=== PATIENT | male | born 1960 | race African-American/Black ===

== ENCOUNTER 2017-05-18 02:17 | Inpatient (IN) | payer SELFPAY ==
[~2017-05-18] VITALS: Ht 175.3 cm; Wt 72.7 kg
[2017-05-18] VITALS (10 sets, daily range): BP systolic 118–142; BP diastolic 61–91; PULSE 45–69; RESP 8–20; TEMP 97.5; Ht 175.3 cm; Wt 72.7 kg
[2017-05-18] MEDS ORDERED: ENALAPRILAT 1.25 MG INJ IV ONE (03:00)
[2017-05-18] MEDS ORDERED: SOD CHLORIDE 0.9% 1,000 ML IV STA (03:00)
[2017-05-18 03:26] LABS: BASOPHILS % 0.7 % (0.0-2.0); EOSINOPHILS # 0.2 10^3/ul (0.0-0.5); EOSINOPHILS % 2.9 % (0.0-7.0); HEMATOCRIT 43.2 % (42.0-52.0); HEMOGLOBIN 14.6 g/dl (14.0-18.0); LYMPHOCYTES % 34.7 % (15.0-51.0); MEAN CORPUSCULAR HEMOGLOBIN 29.9 pg (29.0-33.0); MEAN CORPUSCULAR HGB CONC 33.8 g/dl (32.0-37.0); MEAN CORPUSCULAR VOLUME 88.5 fl (82.0-101.0); MEAN PLATELET VOLUME 9.9 fl (7.4-10.4); MONOCYTE # 0.6 10^3/ul (0.3-0.9); MONOCYTES % 9.7 % (0.0-11.0); NEUTROPHILS % 51.7 % (39.0-77.0); PLATELET COUNT 274 10^3/UL (140-415); RED BLOOD COUNT 4.88 10^6/ul (4.70-6.10); WHITE BLOOD COUNT 5.8 10^3/ul (4.8-10.8)
[2017-05-18 03:30] LABS: ALANINE AMINOTRANSFERASE 41 IU/L (13-69); ALBUMIN 4.4 g/dl (3.3-4.9); ALBUMIN/GLOBULIN RATIO 1.33; ALKALINE PHOSPHATASE 76 IU/L (42-121); ANION GAP 14 (8-16); ASPARTATE AMINO TRANSFERASE 29 IU/L (15-46); BILIRUBIN,INDIRECT 0.9 mg/dl (0-1.1); BILIRUBIN,TOTAL 0.9 mg/dl (0.2-1.3); BLOOD UREA NITROGEN 8 mg/dl (7-20); CALCIUM 9.5 mg/dl (8.4-10.2); CARBON DIOXIDE 28 mmol/L (21-31); CHLORIDE 107 mmol/L (97-110); CREATININE 0.95 mg/dl (0.61-1.24); GLUCOSE 113 mg/dl (70-220); SODIUM 146 mmol/L (135-144); TOTAL PROTEIN 7.7 g/dl (6.1-8.1)
[2017-05-18] MEDS ORDERED: POTASSIUM CHLORIDE (SR) 20 MEQ TAB PO STA (03:35)
--- NOTE | 2017-05-18 03:38 | RADRPT ---
PROCEDURE: CHEST - 1 VIEW CLINICAL INDICATION: 56-year-old male with chest/abdominal pain. TECHNIQUE: A single frontal AP upright portable view of the chest was performed. The images were reviewed on a PACS workstation. COMPARISON: None. FINDINGS: The cardiomediastinal silhouette has a normal appearance. There is no evidence for an infiltrate. There is no evidence for congestive heart failure. There is no evidence for pneumothorax. The osseou s structures are intact. IMPRESSION: No evidence for active cardiopulmonary disease. .Carlos Enrique Yarbrough MD, MD Date Time Electronically viewed and signed by .Carlos Enrique Yarbrough MD, on 05/18/2017 03:37 .M/
[2017-05-18 03:40] LABS: ADD UMIC NO; UR ASCORBIC ACID NEGATIVE (NEGATIVE); UR BILIRUBIN (Dip) NEGATIVE (NEGATIVE); UR BLOOD (Dip) NEGATIVE (NEGATIVE); UR CLARITY CLEAR (CLEAR); UR COLOR YELLOW (YELLOW); UR GLUCOSE (Dip) NEGATIVE (NEGATIVE); UR KETONES (Dip) NEGATIVE (NEGATIVE); UR LEUKOCYTE ESTERASE (Dip) NEGATIVE Leu/ul (NEGATIVE); UR NITRITE (Dip) NEGATIVE (NEGATIVE); UR SPECIFIC GRAVITY (Dip) 1.014 (1.003-1.030); UR TOTAL PROTEIN (Dip) NEGATIVE (NEGATIVE); UR UROBILINOGEN (Dip) NEGATIVE (NEGATIVE)
[2017-05-18 03:44] LABS: TROPONIN-I < 0.012 ng/ml (0.00-0.12)
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
[2017-05-18] MEDS ORDERED: POTASSIUM CHLORIDE 250 ML IVPB ONE (04:30)
[2017-05-18] MEDS ORDERED: ACETAMINOPHEN 325 MG TAB PO PRN (06:30)
[2017-05-18] MEDS ORDERED: ONDANSETRON 4 MG INJ IV PRN (06:30)
[2017-05-18 08:12] LABS: MAGNESIUM 1.7 mg/dl (1.7-2.5); PHOSPHORUS 3.2 mg/dl (2.5-4.9)
[2017-05-18] MEDS ORDERED: ENOXAPARIN 40 MG/0.4 ML SYG SC SCH (09:00)
[2017-05-18] MEDS ORDERED: ASPIRIN 81 MG TAB PO SCH (09:00)
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
--- NOTE | 2017-05-18 14:04 | PDOCDIS ---
Discharge Instructions DIAGNOSIS Discharge Diagnosis 1. Syncope, unknown etiology 2. Numbness in the pelvic area. Likey secondary to patient's prolonged sitting with possible nerve compression. improved significantly 3. Elevated blood pressure, likely secondary to anxiety 4. Hypokalemia CONDITION Patient Condition: Stable HOME CARE INSTRUCTIONS: Special Diet: REGULAR FOLLOW UP/APPOINTMENTS Follow-up Plan 1. Follow up with your primary care provider in one week BETO SARGENT May 18, 2017 14:04
--- NOTE | 2017-05-18 14:36 | RADRPT ---
Echocardiogram Report Patient Name: YAJAIRA LOPES Gender: Male Date: 1960 Study Date: 18-May-2017 Hearing Specialist: [facility] Location: [facility] Ref. Physician: MIKE ESPINAL Quality: Adequate Procedures: Transthoracic echocardiogram with complete 2D, M-Mode, and doppler examination. Indications: Syncope. 2D/M Mode Doppler Measurement Value Normal Ranges Measurement Value Normal Ranges LVIDd 2D 4.3 3.5 - 5.6 cm AV Peak Miguel 1.2 m/sec LVIDs 2D 2.8 2.1 - 4.1 cm AV Peak PG 6.0 mmHg FS 2D 34.4 % LVOT Peak Miguel 1.0 m/sec LVPWd 2D 1.1 0.6 - 1.1 cm LVOT Peak PG 4.0 mmHg IVSd 2D 1.1 0.6 - 1.1 cm MV E Peak Miguel 0.7 m/sec IVS/LVPW 2D 1.0 MV A Peak Miguel 0.6 m/sec AoR Diam 2D 2.7 2.0 - 3.7 cm MV E/A 1.3 LA/Ao 2D 1 0 - 1 MV Decel Time 204 msec EDV 2D 79.5 cm3 MV E/A 1.3 ESV 2D 22.4 cm3 TR Peak Miguel 2.5 m/sec LA Dimen 2D 3.1 2.3 - 4.0 cm TR Peak PG 25.0 mmHg RVSP 28.0 mmHg Findings Left Ventricle: Normal left ventricular systolic function. Normal left ventricular cavity size. Normal left ventricular wall thickness. Ejection fraction is visually estimated at 65 %. Right Ventricle: Normal right ventricular size. Normal right ventricular systolic function. Left Atrium: The left atrium is normal in size. Right Atrium: The right atrium is normal in size. Mitral Valve: Mild mitral leaflet calcification. Mild mitral annular calcification. Trace mitral regurgitation. Aortic Valve: Grossly normal appearance of the aortic valve. No hemodynamically significant aortic stenosis by doppler. Trace aortic valve regurgitation. Tricuspid Valve: Normal appearance and function of the tricuspid valve with trace physiologic regurgitation. Estimated peak PA systolic pressure 28 mmHg. Pulmonic Valve: Pulmonic valve not well visualized. There is trace pulmonic regurgitation. Pericardium: Normal pericardium with no significant pericardial effusion. Aorta: Normal aortic root. IVC: Normal size and normal respiratory collapse consistent with normal right atrial pressure. Conclusions 1.Normal left ventricular systolic function. Normal left ventricular cavity size. Normal left ventricular wall thickness. Ejection fraction is visually estimated at 65 %. 2.Normal right ventricular size. Normal right ventricular systolic function. 3.The left atrium is normal in size. 4.The right atrium is normal in size. 5.No significant valvular stenosis or regurgitation seen. 6.Normal pericardium with no significant pericardial effusion. Electronically Signed By: Hola Arriola 18-May-2017 14:36:00 -0700 Patient Name: YAJAIRA LOPES Study Date: 18-May-2017 [id number]
--- NOTE | 2017-05-18 15:00 | RADRPT ---
PROCEDURE: US Carotids. CLINICAL INDICATION: Syncope. TECHNIQUE: Multiple sonographic of the carotid arteries were obtained utilizing purdy scale imaging . Color and Doppler imaging was performed. The images were reviewed on a PACS workstation. COMPARISON: No prior studies are available for comparison. FINDINGS: Location Right Left CCA 78 cm/sec 77 cm/sec Prox ICA 69 cm/sec 45 cm/sec Mid ICA 55 cm/sec 49 cm/sec Dist ICA 78 cm/sec 46 cm/sec ECA 73 cm/sec 54 cm/sec ICA/CCA 1.1 0.6 Antegrade flow is seen within the vertebral arteries bilaterally. No significant plaque is seen with in the carotid system bilaterally. No hemodynamically significant stenosis or occlusion is identifi ed. IMPRESSION: 1. No evidence for hemodynamically significant stenosis - validated velocity measurements with angio graphic measurements, velocity criteria are extrapolated from diameter data as defined by the Societ y of Radiologists in Ultrasound Consensus Conference Radiology 2003; 229;340-346. This study does i ndirectly reference the measurement of the distal ICA diameter as the denominator for stenosis measu rement. 2. Antegrade flow seen within the vertebral arteries bilaterally. SRU Consensus Conference Criteria for the Diagnosis of Carotid Artery Stenosis Degree of Stenosis, % ICA PSV, cm/sec Plaque Estimate, % ICA/CCA PSV Ratio Normal <125 None <2.0 <50 <125 <50 <2.0 50 69 125-230 >50 2.0-4.0 >70 but less than near occlusion >230 >50 <4.0 Near occlusion High, low, or undetectable Visible Variable Total occlusion Undetectable Visible, no detectable lumen Not applicable *Cartoid artery stenosis: purdy-scale and Doppler US diagnosis. Society of Radiologists in Ultrasound Consensus Conference. Radiology 2003; 229: 340-346 RPTAT: JJ .Graham Diallo MD, Date Time Electronically viewed and signed by .Graham Diallo MD, on 05/18/2017 15:00 .A/
--- NOTE | 2017-05-18 15:05 | RADRPT ---
Vent Rate: 85 bpm RR Interval: 0 msec KY Interval: 144 msec QRS Duration: 76 msec QT Interval: 362 msec QTC Interval: 430 msec P-R-T Bradley: 76 - 75 - 38 degrees Normal sinus rhythm with sinus arrhythmia Normal ECG Electronically Signed By: Hola Arriola [id number]
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
== END 2017-05-18 17:35 | disposition home or self-care (01) | DRG 312 ==
LOC: E/R 02:17 → TEL 04:06
PROVIDERS: ADMIT Internal Medicine; ATTEND Internal Medicine
DX: R55 Syncope and collapse (principal); E87.6 Hypokalemia; R20.0 Anesthesia of skin
CPT/HCPCS: 36415; 71010; 80053; 81003; 83690; 83735; 84100; 84132; 84484; 85025; 93005; 93306; 93880; 96374; 96375; J1650; J3480; J7030